=== PATIENT | male | born 1940 | race Caucasian/White ===

== ENCOUNTER → 2016-11-21 | Outpatient (CLI) | payer MEDICARE, BC ==
[~2016-11-21] MED LIST: ASPI1TAB69 PO; LEVO112T29 PO; RITA20TA PO; SIMV20TA PO
[2016-11-21 11:47] LABS: HDL CHOLESTEROL 45.6 MG/DL (40.0-60.0); INDIRECT BILIRUBIN 1.7 MG/DL (0.0-0.8)
== END ==
LOC: CLAB 10:45
DX: E78.5 Hyperlipidemia, unspecified (principal); Z79.899 Other long term (current) drug therapy
CPT/HCPCS: 36415; 80061; 80076

== ENCOUNTER → 2016-12-08 | Outpatient (CLI) | payer MEDICARE, BC ==
[2016-12-08 14:51] LABS: HEMATOCRIT 39.3 % (39.0-51.0); MEAN CELL VOLUME 87.4 FL (80.0-100.0); MEAN CORPUSCULAR HEMOGLOBIN 30.7 PG (27.0-34.0); MEAN CORPUSCULAR HGB CONC 35.2 % (32.0-36.0); PLATELET COUNT 242 TH/MM3 (150-450); RED BLOOD COUNT 4.49 MIL/MM3 (4.50-5.90); RED CELL DISTRIBUTION WIDTH 13.2 % (11.6-17.2); REVIEW FLAG FINAL; WHITE BLOOD COUNT 6.8 TH/MM3 (4.0-11.0)
[2016-12-08 15:19] LABS: ALT (GPT) 18 U/L (12-78); ANION GAP 8 MEQ/L (5-15); AST (GOT) 20 U/L (15-37); BICARBONATE 26.3 MEQ/L (21.0-32.0); BLOOD UREA NITROGEN 16 MG/DL (7-18); CHLORIDE 110 MEQ/L (98-107); GLOMERULAR FILTRATION RATE 65 ML/MIN (>89); GLUCOSE,FASTING 96 MG/DL (74-99); POTASSIUM 3.8 MEQ/L (3.5-5.1); SODIUM (NA) 144 MEQ/L (136-145)
[2016-12-08 15:21] LABS: ALKALINE PHOSPHATASE 76 U/L (45-117); CREATINE KINASE 126 U/L (39-308); RHEUMATOID FACTOR TRIGGER LESS THAN 10.0 IU/ML (0.0-14.9); TOTAL BILIRUBIN ADULT 1.8 MG/DL (0.2-1.0)
[2016-12-08 15:55] LABS: WESTERGREN SEDIMENTATION RATE 4 mm/hr (0-20)
[2016-12-11 14:46] LABS: ANA SCREEN POS (NEG)
[2016-12-12 23:53] LABS: IGA SERUM 167 mg/dL (81-463); SM ANTIBODY <1.0 NEG AI (<1.0 NEGATIVE); SM/RNP ANTIBODY <1.0 NEG AI (<1.0 NEGATIVE); TISSUE TRANSGLUTAMINASE AB IGG ND U/mL (())
[2016-12-13 13:50] LABS: ENDOMYSIAL AB TITER ND (<1:5); TISSUE TRANSGLUTAMINASE AB LESS THAN 1 U/mL (())
== END ==
LOC: CLAB 14:21
PROVIDERS: ATTEND Internal Medicine Rheumatology
DX: R21 Rash and other nonspecific skin eruption (principal); K62.81 Anal sphincter tear (healed) (nontraumatic) (old); K90.0 Celiac disease
CPT/HCPCS: 36415; 80053; 82550; 82784; 82785; 83516; 85027; 85652; 86038; 86039; 86235; 86430

== ENCOUNTER → 2017-07-24 | Outpatient (CLI) | payer MEDICARE, BC ==
[2017-07-24 11:26] LABS: FREE T4 1.46 NG/DL (0.76-1.46)
== END ==
LOC: CLAB 10:13
PROVIDERS: ATTEND Family Medicine
DX: E03.8 Other specified hypothyroidism (principal)
CPT/HCPCS: 36415; 84439; 84443

== ENCOUNTER → 2017-08-21 | Outpatient (CLI) | payer MEDICARE, BC ==
[2017-08-21 14:58] LABS: FREE T4 1.32 NG/DL (0.76-1.46)
== END ==
LOC: CLAB 13:36
PROVIDERS: ATTEND Urology
DX: E03.8 Other specified hypothyroidism (principal); Z12.5 Encounter for screening for malignant neoplasm of prostate
CPT/HCPCS: 36415; 84153; 84439; 84443

== ENCOUNTER → 2017-09-18 | Outpatient (CLI) | payer MEDICARE, BC ==
[2017-09-18 13:10] LABS: HEMATOCRIT 40.3 % (39.0-51.0); HEMOGLOBIN 14.3 GM/DL (13.0-17.0); MEAN CELL VOLUME 87.4 FL (80.0-100.0); MEAN CORPUSCULAR HEMOGLOBIN 30.9 PG (27.0-34.0); MEAN CORPUSCULAR HGB CONC 35.4 % (32.0-36.0); PLATELET COUNT 294 TH/MM3 (150-450); RED BLOOD COUNT 4.61 MIL/MM3 (4.50-5.90); RED CELL DISTRIBUTION WIDTH 13.5 % (11.6-17.2); WHITE BLOOD COUNT 6.6 TH/MM3 (4.0-11.0)
[2017-09-18 13:41] LABS: ALBUMIN 3.6 GM/DL (3.4-5.0); AST (GOT) 18 U/L (15-37); BICARBONATE 28.8 MEQ/L (21.0-32.0); BLOOD UREA NITROGEN 13 MG/DL (7-18); CALCIUM 8.5 MG/DL (8.5-10.1); CHLORIDE 108 MEQ/L (98-107); CHOLESTEROL 195 MG/DL (120-200); CREATININE 1.05 MG/DL (0.60-1.30); GLOMERULAR FILTRATION RATE 68 ML/MIN (>89); GLUCOSE,FASTING 85 MG/DL (74-99); SODIUM (NA) 141 MEQ/L (136-145)
[2017-09-18 13:50] LABS: ALKALINE PHOSPHATASE 84 U/L (45-117); ALT (GPT) 13 U/L (12-78); CHOLESTEROL/ HDL RATIO 5.31 RATIO; FREE T4 1.32 NG/DL (0.76-1.46); HDL CHOLESTEROL 36.7 MG/DL (40.0-60.0); LDL CHOLESTEROL 143 MG/DL (0-99); LDL CHOLESTEROL DIRECT 146 MG/DL (0-99); TOTAL BILIRUBIN ADULT 1.1 MG/DL (0.2-1.0); TOTAL PROTEIN 7.3 GM/DL (6.4-8.2); TRIGLYCERIDES 75 MG/DL (42-150)
== END ==
LOC: CLAB 12:32
PROVIDERS: ATTEND Family Medicine
DX: E78.2 Mixed hyperlipidemia (principal); E03.9 Hypothyroidism, unspecified
CPT/HCPCS: 36415; 80053; 80061; 83721; 84439; 84443; 85027

== ENCOUNTER → 2017-12-13 | Outpatient (CLI) | payer MEDICARE, BC ==
[2017-12-13 10:54] LABS: HEMATOCRIT 42.8 % (39.0-51.0); HEMOGLOBIN 14.9 GM/DL (13.0-17.0); MEAN CELL VOLUME 88.2 FL (80.0-100.0); MEAN CORPUSCULAR HEMOGLOBIN 30.8 PG (27.0-34.0); MEAN CORPUSCULAR HGB CONC 34.9 % (32.0-36.0); MEAN PLATELET VOLUME 7.6 FL (7.0-11.0); PLATELET COUNT 244 TH/MM3 (150-450); RED BLOOD COUNT 4.85 MIL/MM3 (4.50-5.90); RED CELL DISTRIBUTION WIDTH 13.6 % (11.6-17.2); WHITE BLOOD COUNT 6.1 TH/MM3 (4.0-11.0)
[2017-12-13 11:16] LABS: ALBUMIN 3.7 GM/DL (3.4-5.0); AST (GOT) 15 U/L (15-37); BICARBONATE 26.9 MEQ/L (21.0-32.0); BLOOD UREA NITROGEN 9 MG/DL (7-18); CALCIUM 8.7 MG/DL (8.5-10.1); CHLORIDE 108 MEQ/L (98-107); CREATININE 1.19 MG/DL (0.60-1.30); GLOMERULAR FILTRATION RATE 59 ML/MIN (>89); GLUCOSE,FASTING 88 MG/DL (74-99); SODIUM (NA) 143 MEQ/L (136-145)
[2017-12-13 11:18] LABS: CHOLESTEROL 191 MG/DL (120-200); TRIGLYCERIDES 76 MG/DL (42-150)
[2017-12-13 11:20] LABS: ALKALINE PHOSPHATASE 77 U/L (45-117); ALT (GPT) 17 U/L (12-78); HDL CHOLESTEROL 40.6 MG/DL (40.0-60.0); LDL CHOLESTEROL 135 MG/DL (0-99); LDL CHOLESTEROL DIRECT 143 MG/DL (0-99); TOTAL BILIRUBIN ADULT 1.6 MG/DL (0.2-1.0); TOTAL PROTEIN 6.9 GM/DL (6.4-8.2)
== END ==
LOC: CLAB 09:55
PROVIDERS: ATTEND Family Medicine
DX: E78.5 Hyperlipidemia, unspecified (principal); F90.0 Attention-deficit hyperactivity disorder, predominantly inattentive type; R60.0 Localized edema; R21 Rash and other nonspecific skin eruption; I82.409 Acute embolism and thrombosis of unspecified deep veins of unspecified lower extremity; J06.9 Acute upper respiratory infection, unspecified
CPT/HCPCS: 36415; 80053; 80061; 83721; 85027

== ENCOUNTER → 2017-12-28 | Outpatient (CLI) | payer MEDICARE, BC | LOC: CLAB 13:26 | PROVIDERS: ATTEND Family Medicine | DX: E03.8 Other specified hypothyroidism (principal) | CPT/HCPCS: 36415; 84439; 84443 ==